=== PATIENT | male | born 1990 | race Two or more races ===

== ENCOUNTER 2020-07-27 16:06 | Emergency (ER) | payer OTHER ==
[~2020-07-27] VITALS: Ht 172.7 cm; Wt 72.6 kg
--- NOTE | 2020-07-27 16:07 | NUR ---
ED Nurse Note: Patient BIBA d/t chronic 05/16 back pain, patient also states he has hx of seizures, last was this AM, unwitnessed. Patient curently AxO x 4, no residual neuro deficit. Patient on the alley tender, seizure precautions in place. ERMD at bedside.
[2020-07-27 16:09] VITALS: BP 100/67
[2020-07-27] MEDS ORDERED: LORazepam Inj 2mg/ml 1ml IV ONE (16:15)
[2020-07-27] MEDS ORDERED: Ketorolac 30mg Inj IV ONE (16:15)
[2020-07-27] MEDS ORDERED: levETIRAcetam 500mg/NS100ml 110 ML IV ONE (16:15)
--- NOTE | 2020-07-27 16:18 | Emergency Room Report ---
History of Present Illness General Chief Complaint: Seizure Source: Patient Present Illness [facility] Paramedics transported the patient here because of a chief complaint of back pain. Patient says that this began this morning. Paramedics mentioned nothing about the fact that he had a seizure this morning causing him to have back pain. The pain is rated 7/10 and worse when he moves about. He denies any extremity numbness or weakness or incontinence. The patient not take any blood thinners at this time. The patient apparently ran out of his Keppra many days ago. The last seizure before today was 2 days ago and he was evaluated at [facility]. He is not sure what they found or what was done for him at [facility]. The patient denies drugs or alcohol. He is living with his brother. He did not eat since last night but that was just a matter of choice. Patient denies exposure to COVID-19 positive contacts. No fevers, chills, sore throat, chest pain, palpitations, nausea, vomiting, diarrhea, dysuria, abdominal pain, shortness of breath, rashes, depression, anxiety, dizziness, headache. Allergies: Coded Allergies: No Known Allergies (Unverified , 07/10/20) COVID-19 Screening Contact w/high risk pt: No Experienced COVID-19 symptoms?: No COVID-19 Testing performed ACCOUNTING SYSTEMS ANALYST: No Patient History Past Medical History: see triage record Social History: Reports: smoking; Denies: alcohol use, drug use - See tox screen Social History Narrative lives with brother Reviewed Nursing Documentation: PMH: Agreed; PSxH: Agreed Nursing Documentation-[facility] Past Medical History: No Stated History Review of Systems All Other Systems: negative except mentioned in HPI Physical Exam Vital Signs Date Time Temp Pulse Resp B/P (MAP) Pulse Ox O2 Delivery O2 Flow Rate FiO2 07/27/20 16:03 98.2 85 18 100/67 (78) 97 Room Air Sp02 EP Interpretation: reviewed, normal General Appearance: well appearing, no apparent distress, GCS 15 Head: normocephalic Eyes: bilateral eye normal inspection, bilateral eye PERRL, bilateral eye EOMI ENT: other - Wearing mask Neck: full range of motion, supple Respiratory: lungs clear, normal breath sounds Cardiovascular #1: regular rate, rhythm Cardiovascular #2: 2+ radial (R) Gastrointestinal: normal inspection, normal bowel sounds, non tender, no mass, non-distended, scaphoid Musculoskeletal: normal range of motion, moves extm spontaneously, tender - Lumbar spine area Neurologic: alert, motor strength/tone normal, aquatic centre manager III-XII nml as tested, DTRs symmetric, oriented x3, sensory intact, cerebellar normal, speech normal Psychiatric: mood/affect normal - Slightly depressed Skin: no rash, warm/dry Medical Decision Making Homeless Attestation I, The treating physician Dr. Villalpando, have assessed and agree that patient is medically stable for discharge to an outpatient disposition. Diagnostic Impression: Primary Impression: Seizure Additional Impressions: Noncompliance with medication regimen Lumbar compression fracture Qualified Codes: S32.000D - Wedge compression fracture of unspecified lumbar vertebra, subsequent encounter for fracture with routine healing Amphetamine abuse ER Course Patient presents post seizure with lumbar pain. Differential includes uncontrolled seizures, noncompliance, aspiration, lumbar fractures amongst others. Evaluation with EKG, labs, chest x-ray and lumbar spine films. Patient treated with Ativan and a dose of Keppra as he states he is been noncompliant. EKG without injury. Chest x-ray no infiltrates. Lumbar spine films with compression fractures. Labs remarkable for positive amphetamines. Patient resting with no acute pain. No seizure activity. In discussing with patient lumbar fracture she says that initially occurred 9 years ago. Initially he stated he lived with his brother, but then states he is staying with friends on the streets. Discussed treatment plan with patient and importance of abstinence from amphetamine. Patient is ambulatory however request crutches. Crutches provided. Patient stable for outpatient observation and treatment. Laboratory Tests Test 07/27/20 16:15 White Blood Count 5.7 K/UL (4.8-10.8) Red Blood Count 5.15 M/UL (4.70-6.10) Hemoglobin 13.6 G/DL (14.2-18.0) L Hematocrit 42.6 % (42.0-52.0) Mean Corpuscular Volume 83 FL (80-99) Mean Corpuscular Hemoglobin 26.4 PG (27.0-31.0) L Mean Corpuscular Hemoglobin Concent 31.8 G/DL (32.0-36.0) L Red Cell Distribution Width 13.8 % (11.6-14.8) Platelet Count 283 K/UL (150-450) Mean Platelet Volume 6.6 FL (6.5-10.1) Neutrophils (%) (Auto) 47.9 % (45.0-75.0) Lymphocytes (%) (Auto) 41.3 % (20.0-45.0) Monocytes (%) (Auto) 6.6 % (1.0-10.0) Eosinophils (%) (Auto) 3.2 % (0.0-3.0) H Basophils (%) (Auto) 1.0 % (0.0-2.0) Urine Color Yellow Urine Appearance Clear Urine pH 6 (4.5-8.0) Urine Specific [place] 1.020 (1.005-1.035) Urine Protein 1+ (NEGATIVE) H Urine Glucose (UA) Negative (NEGATIVE) Urine Ketones 1+ (NEGATIVE) H Urine Blood Negative (NEGATIVE) Urine Nitrite Negative (NEGATIVE) Urine Bilirubin Negative (NEGATIVE) Urine Urobilinogen Normal MG/DL (0.0-1.0) Urine Leukocyte Esterase Negative (NEGATIVE) Urine RBC 0 /HPF (0 - 0) Urine WBC 0-2 /HPF (0 - 0) Urine Squamous Epithelial Cells None /LPF (NONE/OCC) Urine Bacteria Occasional /HPF (NONE) Urine Mucus Moderate /LPF (NONE/OCC) H Sodium Level Pending Potassium Level Pending Chloride Level Pending Carbon Dioxide Level 29 MMOL/L (21-32) Blood Urea Nitrogen 17 mg/dL (7-18) Creatinine 0.8 MG/DL (0.55-1.30) Estimated Glomerular Filtration Rate > 60 mL/min (>60) Glucose Level 99 MG/DL (74-106) Calcium Level 9.3 MG/DL (8.5-10.1) Total Bilirubin 0.5 MG/DL (0.2-1.0) Aspartate Amino Transferase (AST) 31 U/L (15-37) Alanine Aminotransferase (ALT) 48 U/L (12-78) Alkaline Phosphatase 70 U/L (46-116) Total Creatine Kinase 228 U/L (26-308) Total Protein 7.3 G/DL (6.4-8.2) Albumin 3.7 G/DL (3.4-5.0) Globulin 3.6 g/dL Albumin/Globulin Ratio 1.0 (1.0-2.7) Urine Opiates Screen Negative (NEGATIVE) Acetaminophen Level < 2 MCG/ML (10-30) L Urine Barbiturates Screen Negative (NEGATIVE) Phencyclidine (PCP) Screen Negative (NEGATIVE) Urine Amphetamines Screen Positive (NEGATIVE) H Urine Benzodiazepines Screen Negative (NEGATIVE) Urine Cocaine Screen Negative (NEGATIVE) Urine Marijuana (THC) Screen Negative (NEGATIVE) Serum Alcohol < 3 mg/dL EKG Diagnostic Results Rate: normal Rhythm: NSR ST Segments: no acute changes Rhythm Strip Diag. Results EP Interpretation: yes Rhythm: NSR, no PVC's, no ectopy Chest X-Ray Diagnostic Results Chest X-Ray Diagnostic Results : Chest X-Ray Ordered: Yes # of Views/Limited/Complete: 1 View Indication: Other EP Interpretation: Yes Interpretation: no consolidation, no effusion, no pneumothorax Impression: No acute disease Electronically Signed by: Electronically signed by Philip Villalpando MD Other X-Ray Diagnostic Results Other X-Ray Diagnostic Results : X-Ray ordered: Lumbar spine film # of Views/Limited Vs Complete: 3 View Indication: Pain EP Interpretation: Yes Interpretation: no dislocation, no soft tissue swelling, other - Compression fractures L3-L4 Impression: Other Electronically Signed by: Electronically signed by Philip Villalpando MD Last Vital Signs Date Time Temp Pulse Resp B/P (MAP) Pulse Ox O2 Delivery O2 Flow Rate FiO2 07/27/20 18:15 98.0 71 17 118/72 99 Room Air Status: improved Disposition: HOME, SELF-CARE Condition: Improved Scripts Ibuprofen* (MOTRIN*) 600 Mg Tablet 600 MG ORAL Q6H PRN for FOR PAIN, #20 TAB 0 Refills Prov: Philip Villalpando MD 07/27/20 Levetiracetam (Keppra) 250 Mg Tablet 500 MG ORAL EVERY 12 HOURS, #60 TAB 0 Refills Prov: Philip Villalpando MD 07/27/20 Philip Villalpando MD Jul 27, 2020 16:17
[2020-07-27 16:29] LABS: APPEARANCE,URINE CLEAR; BILIRUBIN, URINE NEGATIVE (NEGATIVE); GLUCOSE, URINE (UA) NEGATIVE (NEGATIVE); KETONES,URINE 1+ (NEGATIVE); LEUKOCYTE ESTERASE ,URINE NEGATIVE (NEGATIVE); NITRITE,URINE NEGATIVE (NEGATIVE); PH,URINE 6 (4.5-8.0); PROTEIN,URINE 1+ (NEGATIVE); UROBILINOGEN,URINE NORMAL MG/DL (0.0-1.0)
[2020-07-27 16:30] LABS: COLOR,URINE YELLOW
--- NOTE | 2020-07-27 16:31 | NUR ---
ED Nurse Note: Per MARISOL, ok for patient to eat sandwich. Patient given ham sandwich
[2020-07-27 16:32] LABS: EOSINOPHILS % (AUTO) 3.2 % (0.0-3.0); HEMATOCRIT 42.6 % (42.0-52.0); HEMOGLOBIN 13.6 G/DL (14.2-18.0); LYMPHOCYTES % (AUTO) 41.3 % (20.0-45.0); MEAN CORPUSCULAR VOLUME 83 FL (80-99); MONOCYTES % (AUTO) 6.6 % (1.0-10.0); NEUTROPHILS % (AUTO) 47.9 % (45.0-75.0); PLATELET COUNT 283 K/UL (150-450); RED BLOOD COUNT 5.15 M/UL (4.70-6.10); RED CELL DISTRIBUTION WIDTH 13.8 % (11.6-14.8); WHITE BLOOD COUNT 5.7 K/UL (4.8-10.8)
[2020-07-27 16:50] LABS: ALANINE AMINOTRANSFERASE 48 U/L (12-78); ALBUMIN 3.7 G/DL (3.4-5.0); ALKALINE PHOSPHATASE 70 U/L (46-116); ASPARTATE AMINO TRANSFERASE 31 U/L (15-37); BILIRUBIN,TOTAL 0.5 MG/DL (0.2-1.0); BLOOD UREA NITROGEN 17 mg/dL (7-18); CALCIUM 9.3 MG/DL (8.5-10.1); CARBON DIOXIDE 29 MMOL/L (21-32); CREATINE KINASE 228 U/L (26-308); CREATININE 0.8 MG/DL (0.55-1.30)
--- NOTE | 2020-07-27 16:51 | NUR ---
ED Nurse Note: Patient taken to xray
[2020-07-27] MEDS ORDERED: KEPPRA500 M4 ORAL (16:52)
--- NOTE | 2020-07-27 17:00 | NUR ---
ED Nurse Note: Patient returned from xray
--- NOTE | 2020-07-27 17:00 | Diagnostic Imaging Report ---
EXAM: XR Chest, 1 View CLINICAL HISTORY: SZ TECHNIQUE: Frontal view of the chest. COMPARISON: No relevant prior studies available. FINDINGS: Lungs: No consolidation. Pleural space: Unremarkable. No pneumothorax. Heart: Unremarkable. No cardiomegaly. Mediastinum: Unremarkable. Bones/joints: No acute fracture. IMPRESSION: No acute cardiopulmonary disease.
--- NOTE | 2020-07-27 17:03 | Diagnostic Imaging Report ---
ADDENDUM - Added by Emmanuel Madsen M.D. on 07/27/2020 5:02 PM (-07:00) EXAM: XR Lumbosacral Spine, 2 or 3 Views CLINICAL HISTORY: SZ TECHNIQUE: Frontal and lateral views of the lumbar spine and sacrum. COMPARISON: No relevant prior studies available. FINDINGS: Vertebrae: Severe compression deformities of L3 and L4. Sacrum/coccyx: Unremarkable as visualized. No acute fracture. IMPRESSION: Severe compression deformities of L3 and L4. <MYCVCSECTION> Communications: 07/27/20 17:20 Verify Receipt Verified receipt with MARISSA Wheeler, given to Dr. Villalpando on 07/27 17:22 (-07:00)
[2020-07-27 17:06] LABS: CHLORIDE 102 MMOL/L (98-107); POTASSIUM 3.7 MMOL/L (3.5-5.1); SODIUM 136 MMOL/L (136-145)
[2020-07-27] MEDS ORDERED: IBUPROFEN600 M1 ORAL (17:55)
[2020-07-27] MEDS ORDERED: KEPPRA500 MG ORAL (17:55)
[2020-07-27 18:15] VITALS: BP 118/72
--- NOTE | 2020-07-27 18:15 | NUR ---
ER DISCHARGE NOTE: Patient is cleared to be discharged per ERMD, patient given crutches per order. pt is aox4, on room air, with stable vital signs. pt was given dc and prescription instructions, pt was able to verbalize understanding, pt id band and iv site removed without complications. pt is able to ambulate with steady gait. pt took all belongings. patient given 2 ham sandwiches and juice, denied the need for clothing or transportation.
== END 2020-07-27 18:20 | disposition home or self-care (01) ==
LOC: EDBD 16:06 → EMR 16:47
DX: S32.030D Wedge compression fracture of third lumbar vertebra, subsequent encounter for fracture with routine healing (principal); S32.040D Wedge compression fracture of fourth lumbar vertebra, subsequent encounter for fracture with routine healing; G40.909 Epilepsy, unspecified, not intractable, without status epilepticus; Z91.14 Patient's other noncompliance with medication regimen; F15.10 Other stimulant abuse, uncomplicated; F17.200 Nicotine dependence, unspecified, uncomplicated; X58.XXXS Exposure to other specified factors, sequela
CPT/HCPCS: 36415; 71045; 72020; 80053; 80307; 81003; 82550; 85025; 93005; 96361; 96374; 96375; G0480; J1885; J1953; J7030; Z7502; 99284

== ENCOUNTER 2020-08-09 16:57 | Emergency (ER) | payer OTHER ==
[~2020-08-09] VITALS: Ht 170.2 cm; Wt 70.3 kg
[~2020-08-09 16:57] MED LIST: IBUPROFEN600 M1 ORAL; KEPPRA500 M4 ORAL; KEPPRA500 MG ORAL
--- NOTE | 2020-08-09 17:13 | Emergency Room Report ---
History of Present Illness General Chief Complaint: General Complaint Source: Patient Present Illness HPI Patient is a 30-year-old male brought in by EMS after increased difficulty with concentration. Reports having no recent drug use. Had previous ER visits for similar symptoms in the past. Denies any auditory hallucinations. Denies any suicidal thoughts. Denies any other complaints. Allergies: Coded Allergies: No Known Allergies (Unverified , 07/10/20) COVID-19 Screening Contact w/high risk pt: No Experienced COVID-19 symptoms?: No COVID-19 Testing performed COTTON GINNER: No Patient History Reviewed Nursing Documentation: PMH: Agreed; PSxH: Agreed Nursing Documentation-PM Past Medical History: No History, Except For Hx Seizures: Yes Review of Systems All Other Systems: negative except mentioned in HPI Physical Exam Vital Signs Date Time Temp Pulse Resp B/P (MAP) Pulse Ox O2 Delivery O2 Flow Rate FiO2 08/09/20 16:54 97.9 74 16 138/84 (102) 99 Room Air Sp02 EP Interpretation: reviewed, normal General Appearance: normal inspection, well appearing, no apparent distress, alert, GCS 15, non-toxic Head: atraumatic ENT: normal ENT inspection, hearing grossly normal, normal voice Neck: normal inspection, full range of motion, supple, no bony tend Respiratory: normal inspection, lungs clear, normal breath sounds, no respiratory distress, no retraction, no wheezing Cardiovascular #1: regular rate, rhythm, no edema Gastrointestinal: normal inspection, normal bowel sounds, non tender, soft, no guarding, no hernia Genitourinary: no CVA tenderness Musculoskeletal: normal inspection, back normal, normal range of motion Neurologic: alert, motor strength/tone normal, sewing teacher III-XII 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 Differential diagnosis include was not limited to substance abuse, psychosis, among others. Patient has a benign exam and does not appear to require any imaging or laboratory testing at this time. Patient did not appear to be any acute distress. He is nonfocal neurologic exam. Patient previous ER visits with work-ups for similar symptoms. Does not appear to have any recent seizure activity. Patient denies any suicidal thoughts. He denies any auditory hallucinations. He was advised to follow-up with outpatient mental health. The patient is advised to follow up with primary care doctor in 1-2 days. Patient is advised to return if any worsening condition or if any changes in status that are concerning. This report is dictated with [employer] civil engineering specialist software which may occasionally lead to discrepancies related to use of this software. Last Vital Signs Date Time Temp Pulse Resp B/P (MAP) Pulse Ox O2 Delivery O2 Flow Rate FiO2 08/09/20 16:54 97.9 74 16 138/84 (102) 99 Room Air Status: improved Disposition: HOME, SELF-CARE Condition: Stable Liam Caicedo MD Aug 09, 2020 17:13
[2020-08-09 17:30] VITALS: BP 138/84
--- NOTE | 2020-08-09 17:32 | NUR ---
ED Nurse Note:pt. was BIBA from the street with s/p "convulsions" per pt.'s words, VSS, pt. is A/Ox4 ambulatory with cratches,
[2020-08-09] MEDS ORDERED: Acetaminophen 500mg (ES) tab ORAL ONE ×2 (17:51→18:00)
[2020-08-09 18:00] VITALS: BP 118/76
--- NOTE | 2020-08-09 18:00 | NUR ---
Homeless Discharge: Patient is being discharged from medical care. Awake, alert and oriented x4. After care instructions, including referral to community resources were given. Patient verbalized understanding of After care instructions; at this time patient does not request medications, equipment or placement. Patient signed patient consent in the medical record for patient destination upon discharge. ID band were removed. Patient ambulated out with all personal belongings with cratches.
== END 2020-08-09 18:17 | disposition home or self-care (01) ==
LOC: EDBD 16:57 → EMR 17:20
DX: F19.10 Other psychoactive substance abuse, uncomplicated (principal); G40.909 Epilepsy, unspecified, not intractable, without status epilepticus
CPT/HCPCS: 99283

== ENCOUNTER 2020-11-29 09:22 | Emergency (ER) | payer OTHER ==
[~2020-11-29] VITALS: Ht 177.8 cm; Wt 77.1 kg
[2020-11-29] MEDS ORDERED: KEPPRA500 M4 ORAL (10:03)
--- NOTE | 2020-11-29 10:25 | NUR ---
ED Nurse Note: Pt cleared by health care Provider for discharge. DC instructions/prescription was given and explained to pt and verbalized understanding of teachings. All medical deviecs such as ID band removed. Pt is AAO x4, ambulatory and left with all personal belongings.
--- NOTE | 2020-11-29 10:26 | Emergency Room Report ---
History of Present Illness General Chief Complaint: Seizure Source: Patient Present Illness HPI 30-year-old male presents to ED status post seizure. States he has been having seizures. History of seizures. Takes Keppra. States that he ran out of his medication 1 month ago. History of substance abuse. Denies any drugs lately. States he feels okay at this time. Denies any headaches. States he is hungry. No other aggravating relieving factors. Denies any other associated symptoms Allergies: Coded Allergies: No Known Allergies (Unverified , 07/10/20) COVID-19 Screening Contact w/high risk pt: No Experienced COVID-19 symptoms?: No COVID-19 Testing performed VICE SQUAD POLICE OFFICER: No Patient History Past Medical History: seizures Past Surgical History: none Pertinent Family History: none Social History: Reports: drug use; Denies: smoking, alcohol use Immunizations: UTD Reviewed Nursing Documentation: PMH: Agreed; PSxH: Agreed Nursing Documentation-PMH Past Medical History: No History, Except For Hx Seizures: Yes Review of Systems All Other Systems: negative except mentioned in HPI Physical Exam Vital Signs Date Time Temp Pulse Resp B/P (MAP) Pulse Ox O2 Delivery O2 Flow Rate FiO2 11/29/20 09:33 97.5 71 18 124/91 (102) 98 Room Air Sp02 EP Interpretation: reviewed, normal General Appearance: no apparent distress, alert, GCS 15, non-toxic Head: normocephalic, atraumatic Eyes: bilateral eye normal inspection, bilateral eye PERRL ENT: hearing grossly normal, normal pharynx, no angioedema, normal voice Neck: full range of motion, supple/symm/no masses Respiratory: chest non-tender, lungs clear, normal breath sounds, speaking full sentences Cardiovascular #1: regular rate, rhythm, no edema Cardiovascular #2: 2+ carotid (R), 2+ carotid (L), 2+ radial (R), 2+ radial (L), 2+ dorsalis pedis (R), 2+ dorsalis pedis (L) Gastrointestinal: normal bowel sounds, non tender, soft, non-distended, no guarding, no rebound Rectal: deferred Genitourinary: normal inspection, no CVA tenderness Musculoskeletal: back normal, normal range of motion, gait/station normal, non- tender Neurologic: alert, motor strength/tone normal, oriented x3, sensory intact, responsive, speech normal Psychiatric: judgement/insight normal, memory normal, mood/affect normal, no suicidal/homicidal ideation Reflexes: 3+ bicep (R), 3+ bicep (L), 3+ tricep (R), 3+ tricep (L), 3+ knee (R), 3+ knee (L) Lymphatic: no adenopathy Medical Decision Making Homeless Attestation I, The treating physician Dr. Machado, have assessed and agrees that patient is medically stable for discharge to an outpatient disposition. Diagnostic Impression: Primary Impression: Seizure ER Course Hospital Course 30-year-old male presents status post seizure. Ran out of his seizure meds Differential diagnosis includes- breakthrough seizure, alcohol abuse, noncompliance with medication Clinical course Patient placed on stretcher. Initial history physical exam reveals male in no acute distress. Alert and oriented x3. No focal deficits. I reviewed EMR. Patient has been here us for similar presentations. History of amphetamine use takes Keppra. Patient given Keppra p.o. here. Observed in ED. Given food. Homeless checklist completed. Will provide refills of his medication. Safe for discharge with close outpatient follow-up Diagnosis - seizure disorder stable and discharged. Followup with PMD. Return to ED if symptoms recur or worsen Last Vital Signs Date Time Temp Pulse Resp B/P (MAP) Pulse Ox O2 Delivery O2 Flow Rate FiO2 11/29/20 09:33 97.5 71 18 124/91 (102) 98 Room Air Status: improved Disposition: HOME, SELF-CARE Condition: Stable Scripts Levetiracetam (KEPPRA) 500 Mg Tablet 500 MG ORAL EVERY 12 HOURS for , #60 TAB 0 Refills Prov: Baudilio Machado MD 11/29/20 Referrals: [facility]ERR[facility] (PCP) [facility] Patient Instructions: Seizure, Adult Baudilio Machado MD Nov 29, 2020 10:26
[2020-11-29 10:33] VITALS: BP 124/91
== END 2020-11-29 10:37 | disposition home or self-care (01) ==
LOC: EMR 09:51
DX: G40.909 Epilepsy, unspecified, not intractable, without status epilepticus (principal); Z79.899 Other long term (current) drug therapy
CPT/HCPCS: 99282

== ENCOUNTER 2020-12-01 08:56 | Emergency (ER) | payer OTHER ==
[~2020-12-01] VITALS: Ht 165.1 cm; Wt 72.6 kg
[2020-12-01 10:00] VITALS: BP 120/80
--- NOTE | 2020-12-01 11:00 | NUR ---
examined by dr story waiting fo cxr
--- NOTE | 2020-12-01 11:39 | Emergency Room Report ---
History of Present Illness General Chief Complaint: Eye Problems Source: Patient Present Illness HPI This patient is a homeless male. He is brought in by EMS. Per EMS he had complained of eye pain. However on my evaluation he states that he feels short of breath. He has a demeanor consistent with substance abuse intoxication. He requested a turkey sandwich. He has no other specific complaints. Allergies: Coded Allergies: No Known Allergies (Unverified , 07/10/20) COVID-19 Screening Contact w/high risk pt: No Experienced COVID-19 symptoms?: No COVID-19 Testing performed LEAD FORMER: No Patient History Past Medical History: see triage record, seizures Social History: Denies: smoking, alcohol use, drug use Reviewed Nursing Documentation: PMH: Agreed; PSxH: Agreed Nursing Documentation-PMH Past Medical History: No Stated History Hx Seizures: Yes Review of Systems All Other Systems: negative except mentioned in HPI Physical Exam Vital Signs Date Time Temp Pulse Resp B/P (MAP) Pulse Ox O2 Delivery O2 Flow Rate FiO2 12/01/20 09:54 97.9 72 18 120/80 (93) 97 Room Air Sp02 EP Interpretation: reviewed, normal General Appearance: no apparent distress, alert, GCS 15, non-toxic Head: normocephalic, atraumatic Eyes: bilateral eye normal inspection, bilateral eye PERRL ENT: hearing grossly normal, normal pharynx, no angioedema, normal voice Neck: full range of motion, supple/symm/no masses Respiratory: chest non-tender, lungs clear, normal breath sounds, no respira tory distress, no retraction, no accessory muscle use, speaking full sentences Cardiovascular #1: regular rate, rhythm, no edema Rectal: deferred Musculoskeletal: back normal, normal range of motion, gait/station normal, non- tender Neurologic: alert, motor strength/tone normal, oriented x3, sensory intact, responsive, speech normal Psychiatric: judgement/insight normal, memory normal, mood/affect normal, no suicidal/homicidal ideation Skin: no rash, normal color Medical Decision Making Diagnostic Impression: Primary Impression: Encounter for generalized patient complaints ER Course This patient is known to have methamphetamine abuse and intoxication. He presents today with similar presentation consistent with methamphetamine use behavior. Overall, he is well-appearing without any evidence of an emergency medical condition. He was requesting food and changing his complaints from one person to another. I did obtain a chest x-ray since he had mentioned to me that he had some difficulty breathing. The chest x-ray was clear. Patient's vital signs were within normal limits. The patient's pulse ox was normal in the high 90s and the patient did not have any rapid breathing or evidence of any respiratory symptoms while he was in the emergency department. There is no cough or difficulty breathing. The patient was well-appearing and no emergency medical condition was identified. The patient is given return precautions and follow-up instructions. Chest X-Ray Diagnostic Results Chest X-Ray Diagnostic Results : Chest X-Ray Ordered: Yes # of Views/Limited/Complete: 1 View Indication: Shortness of Breath EP Interpretation: Yes Interpretation: no consolidation, no effusion, no pneumothorax, no acute cardiopulmonary disease Impression: No acute disease Electronically Signed by: Corin Hart DO Last Vital Signs Date Time Temp Pulse Resp B/P (MAP) Pulse Ox O2 Delivery O2 Flow Rate FiO2 12/01/20 10:00 97.9 18 120/80 97 Room Air 12/01/20 09:54 72 Status: improved Disposition: HOME, SELF-CARE Condition: Improved Referrals: [facility],REFERRING (PCP) Corin Hart DO Dec 01, 2020 11:39
--- NOTE | 2020-12-01 11:55 | NUR ---
discharged home with instruction follow up with pmd
[2020-12-01 11:57] VITALS: BP 120/78
--- NOTE | 2020-12-01 15:05 | Diagnostic Imaging Report ---
Indication: Shortness of breath Technique: One view of the chest Comparison: 07/27/2020 Findings: Lungs and pleural spaces are clear. Heart size is normal. No significant change Impression: No acute process
== END 2020-12-01 11:59 | disposition home or self-care (01) ==
LOC: EDUNIT# 08:56 → EDBD 08:56 → EMR 09:49
DX: R06.02 Shortness of breath (principal); H57.10 Ocular pain, unspecified eye; G40.909 Epilepsy, unspecified, not intractable, without status epilepticus
CPT/HCPCS: 71045; Z7502; 99283

== ENCOUNTER 2020-12-06 18:40 | Emergency (ER) | payer OTHER ==
[~2020-12-06] VITALS: Ht 175.3 cm; Wt 77.1 kg
--- NOTE | 2020-12-06 18:41 | NUR ---
ED Nurse Note: pt DENISSE ARZATE RA 826 for medical clearance, EMS report that pt is in custody for vandalism and started to c/o SOB. pt is noted to be satting at 100% on RA, speaking full sentences. lungs are clear to auscultation. EMS and [employer] deny hearing pt cough, pt denies any respiratory history. [employer] are at pt bedside officer Amy tena # [phone] at pt bedside
[2020-12-06 18:46] VITALS: BP 108/67
--- NOTE | 2020-12-06 19:00 | Emergency Room Report ---
History of Present Illness General Chief Complaint: Medical Clearance Source: EMS Present Illness HPI 30-year-old male with history of seizure currently taking Keppra brought in by paramedics and [employer] for medical clearance. Patient reports he is [place], complains of shortness of breath x1 hour. Also requested refill of seizure medication. Reports that he last took it couple days ago and denies any recent seizure activity. Denies any head injury loss of consciousness. Also complains of several months of discoloration of toenails and swelling around toes without any fall or injury. Denies any fever and chills, denies pain in the affected area. Denies any cough and congestion, chest pain, abdominal pain, nausea vomiting. Has not taken medication for symptom relief. Denies any drug use, tobacco smoke, alcohol intake. Denies any psychiatric history. Allergies: Coded Allergies: No Known Allergies (Unverified , 07/10/20) COVID-19 Screening Contact w/high risk pt: No Experienced COVID-19 symptoms?: No COVID-19 Testing performed [employer]: No Patient History Past Medical History: see triage record Past Surgical History: none Pertinent Family History: none Immunizations: UTD Reviewed Nursing Documentation: PMH: Agreed; PSxH: Agreed Nursing Documentation-PMH Hx Seizures: Yes Review of Systems All Other Systems: negative except mentioned in HPI Physical Exam Vital Signs Date Time Temp Pulse Resp B/P (MAP) Pulse Ox O2 Delivery O2 Flow Rate FiO2 12/06/20 18:36 97.5 98 16 108/67 (81) 99 Room Air Sp02 EP Interpretation: reviewed, normal General Appearance: no apparent distress, alert, GCS 15, non-toxic Head: normocephalic, atraumatic Eyes: bilateral eye normal inspection, bilateral eye PERRL ENT: hearing grossly normal, normal pharynx, no angioedema, normal voice Neck: supple Respiratory: no respiratory distress, no retraction, no accessory muscle use Cardiovascular #1: regular rate, rhythm Cardiovascular #2: 2+ dorsalis pedis (R), 2+ dorsalis pedis (L) Gastrointestinal: soft Musculoskeletal: back normal, swelling - Bilateral feet also toenail fungus noted Neurologic: alert, motor strength/tone normal, oriented x3, sensory intact, responsive, speech normal Psychiatric: judgement/insight normal, memory normal, mood/affect normal, no suicidal/homicidal ideation Skin: other - Toenail fungus slightly warm to touch around the toes however swelling of the feet seems to be secondary to squeezing tight shoes Lymphatic: no adenopathy Medical Decision Making PA Attestation All my diagnosis and treatment plans were reviewed ad discussed with my supervising physician Dr. Ragland Diagnostic Impression: Primary Impression: SOB (shortness of breath) Additional Impressions: Toenail fungus Toe infection Medication refill ER Course 30-year-old male with history of seizure currently taking Keppra brought in by paramedics and [employer] for medical clearance. Patient reports he is coming from long term, complains of shortness of breath x1 hour. Also requested refill of seizure medication. Reports that he last took it couple days ago and denies any recent seizure activity. Denies any head injury loss of consciousness. Also complains of several months of discoloration of toenails and swelling around toes without any fall or injury. Denies any fever and chills, denies pain in the affected area. Denies any cough and congestion, chest pain, abdominal pain, nausea vomiting. Has not taken medication for symptom relief. Denies any drug use, tobacco smoke, alcohol intake. Denies any psychiatric history. Ddx considered but are not limited to: Pneumonia, drug use, shortness of breath, toenail fungus, cellulitis, Vital signs: are WNL, pt. is afebrile H&PE are most consistent with medication refill for seizure, toe infection secondary to toenail fungus, S OB ORDERS: Chest x-ray,terbinafine topical 1 month supply of Keppra cephalexin ED INTERVENTIONS: wound clean and dress DISCHARGE: At this time pt. is stable for d/c to home. Will provide printed patient care instructions, and any necessary prescriptions. Care plan and follow up instructions have been discussed with the patient prior to discharge. 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 Interpretation: no consolidation, no effusion, no pneumothorax Impression: No acute disease Electronically Signed by: Lito Johnson PA-C Last Vital Signs Date Time Temp Pulse Resp B/P (MAP) Pulse Ox O2 Delivery O2 Flow Rate FiO2 12/06/20 18:46 97.5 16 108/67 99 Room Air 12/06/20 18:46 98 Disposition: HOME, SELF-CARE Condition: Stable Scripts Cephalexin* (KEFLEX*) 500 Mg Capsule 500 MG ORAL EVERY 6 HOURS for 7 Days, #28 CAP Prov: Lito Grajeda 12/06/20 Terbinafine Hcl (TERBINAFINE HCL) 30 Gm Cream..g. 2 GM TP BID for 28 Days, #30 GM 1% Prov: Lito Grajeda 12/06/20 Levetiracetam (KEPPRA) 500 Mg Tablet 500 MG ORAL EVERY 12 HOURS for 30 Days, #60 TAB 0 Refills Prov: Lito Grajeda 12/06/20 Patient Instructions: Athlete's Foot, Seizure, Adult, Hsec-ps-Rpdx, Shortness of Breath, Wyny-ya-Efte Additional Instructions: Take medication as directed, follow-up with primary care provider, for which your neurologist regarding seizures, if worsening symptoms return to the emergency room also follow-up with your employment trainer regarding toe fungus and slight cellulitis. Lito Grajeda Dec 06, 2020 19:00
[2020-12-06] MEDS ORDERED: CEPHALEXIN500 MG ORAL (19:05)
[2020-12-06] MEDS ORDERED: TERBINAFINE HCL30 GM TP (19:05)
[2020-12-06] MEDS ORDERED: KEPPRA500 M4 ORAL (19:05)
--- NOTE | 2020-12-06 19:10 | NUR ---
ER DISCHARGE NOTE: Patient is cleared to be discharged per ERMD, pt is aox4, on room air 100% O2sat, with stable vital signs. pt's dc and prescription instructions given to two police officers, pt was able to verbalize understanding. pt is able to ambulate with steady gait. pt took all belongings.
--- NOTE | 2020-12-06 19:28 | Diagnostic Imaging Report ---
EXAM: XR Chest, 1 View CLINICAL HISTORY: SOB TECHNIQUE: Frontal view of the chest. COMPARISON: 12/01/2020 FINDINGS: Lungs: No consolidation. Pleural space: No pleural effusion. No pneumothorax. Heart: Unremarkable. No cardiomegaly. IMPRESSION: No acute cardiopulmonary abnormality.
== END 2020-12-06 21:00 | disposition home or self-care (01) ==
LOC: EDBD 18:40 → EMR 18:58
DX: R06.02 Shortness of breath (principal); B35.1 Tinea unguium; Z76.0 Encounter for issue of repeat prescription; G40.909 Epilepsy, unspecified, not intractable, without status epilepticus
CPT/HCPCS: 71045; 99283